=== PATIENT | female | born 1965 | race American Indian/Alaskan Native ===

== ENCOUNTER 2018-07-21 12:56 | Inpatient (IN) | payer MEDICARE ==
[2018-07-21] MEDS ORDERED: NACL 0.9% 500 ML 500 ML IV ONE (13:55)
--- NOTE | 2018-07-21 14:07 | Emergency Department Report ---
ED General Adult HPI - General Chief complaint: Pain General Stated complaint: PAIN ALL OVER Source: patient, EMS Mode of arrival: Stretcher Limitations: Physical Limitation - History of Present Illness Initial comments: This is a 53-year-old female who apparently does have a great deal of denial. She presents to the emergency department stating "I can't get rid of the flu". On further questioning she states that she has had a stuffy head, congestion and cough but no apparent fever which has been persistent for the last 3 weeks. She denies any chronic medical problems. She denies taking any medications. In actuality she is quadriparetic. She has no indwelling Ring catheter. She admits that she was admitted to [facility] for pneumonia in June. She was transfused at that time. She complains of diffuse myalgias. -: Gradual, week(s) Severity scale (0 -10): 7 Quality: aching Consistency: intermittent Improves with: none Worsens with: none Associated Symptoms: cough Treatments Prior to Arrival: none - Related Data Allergies Allergy/AdvReac Type Severity Reaction Status Date / Time mupirocin [From Bactroban] Allergy Unknown Verified 07/21/18 13:22 Penicillins Allergy Unknown Verified 07/21/18 13:22 tetracycline Allergy Unknown Verified 07/21/18 13:22 ED Review of Systems ROS: Stated complaint: PAIN ALL OVER Other details as noted in HPI Constitutional: weakness. denies: chills, fever Eyes: denies: eye pain, eye discharge, vision change ENT: denies: ear pain, throat pain Respiratory: cough. denies: shortness of breath, wheezing Cardiovascular: denies: chest pain, palpitations Endocrine: no symptoms reported Gastrointestinal: denies: abdominal pain, nausea, diarrhea Genitourinary: other (indwelling Ring). denies: urgency, dysuria, discharge Musculoskeletal: denies: back pain, joint swelling, arthralgia Skin: denies: rash, lesions Neurological: other (bedridden quadriparesis). denies: headache, weakness, paresthesias Psychiatric: denies: anxiety, depression Hematological/Lymphatic: denies: easy bleeding, easy bruising ED Past Medical Hx - Past Medical History Previous Medical History?: Yes Additional medical history: quadriplegia - Social History Smoking Status: Never Smoker Substance Use Type: None ED Physical Exam - General Limitations: Physical Limitation General appearance: cachectic - Head Head exam: Present: atraumatic - Eye Eye exam: Present: PERRL, EOMI. Absent: scleral icterus - Neck Neck exam: Absent: tenderness, meningismus - Respiratory Respiratory exam: Present: normal lung sounds bilaterally. Absent: respiratory distress - Cardiovascular Cardiovascular Exam: Present: regular rate. Absent: normal rhythm, bradycardia, tachycardia - GI/Abdominal GI/Abdominal exam: Present: soft, distended. Absent: tenderness, guarding, rebound, rigid - Extremities Exam Extremities exam: Present: other (bilateral atrophy of both arms) - Back Exam Back exam: Present: other (decubiti as photographed by nursing staff) - Neurological Exam Neurological exam: Present: CN II-XII intact (as discussed), motor sensory deficit (quadriparesis) - Psychiatric Psychiatric exam: Present: flat affect - Skin Skin exam: Present: warm, dry, intact ED Course Vital Signs 07/21/18 13:16 Temperature 99.7 F H Pulse Rate 84 Respiratory 16 Rate Blood Pressure 130/72 [Left] O2 Sat by Pulse 93 Oximetry - Reevaluation(s) Reevaluation #1: Patient was found to be hyponatremic and hypomagnesemic. I couldn't exclude infected decubiti. I'm going to start the patient on vancomycin. Further antibiotic coverage if appropriate per hospitalist. 07/21/18 15:04 ED Medical Decision Making - Lab Data Result diagrams: 07/21/18 14:03 07/21/18 14:03 Laboratory Results - last 24 hr 07/21/18 07/21/18 07/21/18 14:03 14:03 14:03 WBC 8.9 RBC 3.04 L Hgb 8.7 L Hct 26.6 L MCV 88 MCH 29 MCHC 33 RDW 16.9 H Plt Count 537 H PT 14.2 INR 1.04 APTT 29.5 VBG pH Sodium Potassium Chloride Carbon Dioxide Anion Gap BUN Creatinine Estimated GFR BUN/Creatinine Ratio Glucose Lactic Acid 0.90 Calcium Phosphorus Magnesium Total Bilirubin Direct Bilirubin Indirect Bilirubin AST ALT Alkaline Phosphatase Total Creatine Kinase CK-MB (CK-2) CK-MB (CK-2) Rel Index Total Protein Albumin Albumin/Globulin Ratio 07/21/18 07/21/18 14:03 14:03 WBC RBC Hgb Hct MCV MCH MCHC RDW Plt Count PT INR APTT VBG pH 7.373 Sodium 126 L Potassium 4.0 Chloride 89.8 L Carbon Dioxide 21 L Anion Gap 19 BUN 13 Creatinine 0.3 L Estimated GFR > 60 BUN/Creatinine Ratio 43 Glucose 87 Lactic Acid Calcium 9.2 Phosphorus 3.00 Magnesium 1.60 L Total Bilirubin 0.30 Direct Bilirubin < 0.2 Indirect Bilirubin 0.1 AST 17 ALT 15 Alkaline Phosphatase 122 Total Creatine Kinase 43 CK-MB (CK-2) < 1.0 CK-MB (CK-2) Rel Index 2.3 Total Protein 9.0 H Albumin 2.8 L Albumin/Globulin Ratio 0.5 - EKG Data -: EKG Interpreted by Dc EKG shows normal: sinus rhythm Rate: normal - EKG Data Interpretation: no acute changes 07/21/18 15:03 j point elevation, rsr v1 and v2 - Radiology Data Radiology results: report reviewed (chest x-ray shows no acute process) Critical care attestation.: If time is entered above; I have spent that time in minutes in the direct care of this critically ill patient, excluding procedure time. ED Disposition Clinical Impression: Hyponatremia, Hypomagnesemia, Quadriparesis Anemia Qualifiers: Anemia type: unspecified type Qualified Code(s): D64.9 - Anemia, unspecified Sacral decubitus ulcer Qualifiers: Pressure injury stage: unspecified pressure injury stage Qualified Code(s): L89.159 - Pressure ulcer of sacral region, unspecified stage Disposition: OP ADMIT IP TO THIS HOSP Is pt being admited?: Yes Does the pt Need Aspirin: Yes Condition: Stable Time of Disposition: 15:06
[2018-07-21 14:26] LABS: Hematocrit 26.6 % (30.3-42.9); Hemoglobin 8.7 gm/dl (10.1-14.3); Mean Corpuscular HGB Conc 33 % (30-34); Mean Corpuscular Volume 88 fl (79-97); Platelet Count 537 K/mm3 (140-440); Red Blood Count 3.04 M/mm3 (3.65-5.03); Red Cell Distribution Width 16.9 % (13.2-15.2)
[2018-07-21 14:38] LABS: INR 1.04 (0.87-1.13)
[2018-07-21 14:39] LABS: Partial Thromboplastin Time 29.5 Sec. (24.2-36.6)
[2018-07-21 14:46] LABS: Alanine Aminotransferase 15 units/L (7-56); Albumin 2.8 g/dL (3.9-5); BUN/Creatinine Ratio 43; Blood Urea Nitrogen 13 mg/dL (7-17); Calcium 9.2 mg/dL (8.4-10.2); Hemolysis Index 14
[2018-07-21 14:48] LABS: Bilirubin,Direct < 0.2 mg/dL (0-0.2); Creatine Kinase MB < 1.0 ng/mL (0.0-4.0)
[2018-07-21] MEDS ORDERED: MAGNESIUM SULFATE 2GM/50ML 2 GM/50 ML BAG IV ONE (15:01)
[2018-07-21] MEDS ORDERED: VANCOMYCIN/NS 1 GM/250 ML 1 GM/250 ML BAG IV ONE (15:02)
[2018-07-21] MEDS ORDERED: BABY ASPIRIN PO ONE (15:07)
[2018-07-21] MEDS ORDERED: NACL 0.9% 1000 ML 1,000 ML IV ONE (15:08)
[2018-07-21 15:28] LABS: Bacteria,Urine 4+ /HPF (Negative); Bilirubin,Urine NEG (Negative); Blood,Urine MOD (Negative); Color,Urine Yellow (Yellow); Mucus,Urine FEW /HPF; Urobilinogen,Urine < 2.0 mg/dL (<2.0)
[2018-07-21 15:29] LABS: WBC,Urine > 182.0 /HPF (0.0-6.0)
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
[2018-07-21] MEDS ORDERED: VANCOMYCIN 1,250 MG in NACL 0.9% 250ML 250 ML IV ONE (16:00)
--- NOTE | 2018-07-21 16:19 | XRay Report ---
EXAM: XR CHEST 1V AP HISTORY: possible Sepsis TECHNIQUE: AP CXR dated 07/21/2018 at 2:09 PM. COMPARISON: None available. FINDINGS: The heart size and mediastinum are within normal limits. The lung sanches and costophrenic angles are clear. There is no acute parenchymal infiltrate, pleural effusion, or pneumothorax seen. There is t horacic dextroscoliosis. The visualized bony structures are otherwise within normal limits. IMPRESSION: 1. No evidence for acute cardiopulmonary disease seen. This document is electronically signed by Anabelle Marks MD., July 21 2018 04:17:25 PM ET
[2018-07-21] MEDS ORDERED: PROVENTIL IH PRN (16:24)
[2018-07-21] MEDS ORDERED: ZOFRAN IV PRN (16:24)
[2018-07-21] MEDS ORDERED: SODIUM CHLORIDE FLUSH SYRINGE 10 ML IV PRN (16:24)
[2018-07-21] MEDS: NACL 0.9% 1000 ML 1,000 ML IV SCH (16:43)
[2018-07-21 16:46] LABS: Basophils % (Manual) 0 % (0.0-1.8); Eosinophils % (Manual) 0 % (0.0-4.3); Myelocytes # (Manual) 0.2 K/mm3; Total Cells Counted 100
[2018-07-21 16:47] LABS: Anisocytosis 1+; Platelet Estimate Consistent w Auto
[2018-07-21] MEDS ORDERED: LEVAQUIN 500MG/100ML 500 MG/100 ML BAG IV SCH (17:00)
[2018-07-21] MEDS ORDERED: FLEET MINERAL OIL PR ONE ×2 (17:00→17:34)
[2018-07-21] MEDS ORDERED: LEVAQUIN 500MG/100ML 500 MG/100 ML BAG IV ONE (17:34)
--- NOTE | 2018-07-21 20:28 | Cat Scan Report ---
PROCEDURE: CT SINUSES WO CON TECHNIQUE: CT of the sinuses obtained without contrast. HISTORY: nasal congestion COMPARISONS: None FINDINGS: Partial opacification of the left frontal sinus and bilateral maxillary sinuses noted with mucosal th ickening. Opacification of the bilateral ostiomeatal units noted. Correlate for sinus inflammatory di sease. No gross air-fluid levels visualized. Mastoid air cells well aerated. Osseous structures intact. IMPRESSION: Partial opacification of the left frontal sinus and bilateral maxillary sinuses noted with mucosal th ickening. Opacification of the bilateral ostiomeatal units noted. Correlate for sinus inflammatory di sease. This document is electronically signed by Gonzales Dumont MD., July 21 2018 08:26:36 PM ET
[2018-07-21] MEDS: SODIUM CHLORIDE FLUSH SYRINGE 10 ML IV SCH (22:22)
[2018-07-21] MEDS ORDERED: LOVENOX SUB-Q ONE (22:26)
[2018-07-21] MEDS: LOVENOX SUB-Q SCH (22:29)
[2018-07-21] MEDS ORDERED: NACL 0.9% 1000 ML 1,000 ML ONE (23:18)
[2018-07-22] MEDS: TYLENOL PO PRN ×2 (01:53→23:18)
[2018-07-22 07:49] LABS: Hematocrit 26.2 % (30.3-42.9); Hemoglobin 8.4 gm/dl (10.1-14.3); Mean Corpuscular HGB Conc 32 % (30-34); Mean Corpuscular Volume 87 fl (79-97); Platelet Count 515 K/mm3 (140-440); Red Blood Count 3.02 M/mm3 (3.65-5.03); Red Cell Distribution Width 16.9 % (13.2-15.2)
[2018-07-22 07:56] LABS: BUN/Creatinine Ratio 40; Blood Urea Nitrogen 8 mg/dL (7-17); Calcium 8.5 mg/dL (8.4-10.2); Hemolysis Index 11
[2018-07-22 09:30] LABS: Band Neutrophils # (Manual) 0.4 K/mm3; Basophils % (Manual) 0 % (0.0-1.8); Total Cells Counted 100
[2018-07-22 09:31] LABS: Anisocytosis 1+; Hypochromasia 1+; Ovalocytes 1+; Platelet Estimate Consistent w Auto
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
[2018-07-22] MEDS: NACL 0.9% 1000 ML 1,000 ML IV SCH (18:07)
[2018-07-22] MEDS: SODIUM CHLORIDE FLUSH SYRINGE 10 ML IV SCH ×2 (18:07→22:11)
[2018-07-22] MEDS: THERAGRAN Tab PO SCH (18:08)
[2018-07-22] MEDS: VITAMIN C PO SCH (18:09)
[2018-07-22] MEDS: DELTASONE PO SCH (18:09)
[2018-07-22] MEDS: ROCEPHIN/NS 2 GM/100 ML 2 GM/100 ML BAG IV SCH (19:03)
[2018-07-22] MEDS: LOVENOX SUB-Q SCH (22:09)
[2018-07-22] MEDS: COLACE PO SCH (22:10)
[2018-07-22] MEDS: LIORESAL PO SCH (22:10)
[2018-07-23] MEDS: LIORESAL PO SCH ×3 (08:09→20:46)
[2018-07-23] MEDS: PROAMATINE PO SCH ×3 (08:10→16:33)
[2018-07-23] MEDS: VITAMIN C PO SCH (09:46)
[2018-07-23] MEDS: COLACE PO SCH ×2 (09:46→21:38)
[2018-07-23] MEDS: DELTASONE PO SCH (09:46)
[2018-07-23] MEDS: THERAGRAN Tab PO SCH (09:47)
[2018-07-23] MEDS: SODIUM CHLORIDE FLUSH SYRINGE 10 ML IV SCH ×2 (09:47→21:37)
[2018-07-23] MEDS: DULCOLAX PR PRN (10:32)
[2018-07-23] MEDS: NACL 0.9% 1000 ML 1,000 ML IV SCH (16:27)
[2018-07-23] MEDS: ROCEPHIN/NS 2 GM/100 ML 2 GM/100 ML BAG IV SCH (16:27)
[2018-07-23] MEDS ORDERED: ATIVAN PO PRN (16:35)
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
[2018-07-23] MEDS: LOVENOX SUB-Q SCH (21:37)
[2018-07-23] MEDS: PEPCID PO SCH (21:38)
[2018-07-24] MEDS: PROAMATINE PO SCH ×3 (08:00→16:00)
[2018-07-24] MEDS: LIORESAL PO SCH ×3 (08:00→20:11)
[2018-07-24] MEDS: THERAGRAN Tab PO SCH (09:10)
[2018-07-24] MEDS: SODIUM CHLORIDE FLUSH SYRINGE 10 ML IV SCH ×2 (09:10→21:45)
[2018-07-24] MEDS: PEPCID PO SCH ×2 (09:10→21:44)
[2018-07-24] MEDS: COLACE PO SCH ×2 (09:10→21:44)
[2018-07-24] MEDS: VITAMIN C PO SCH ×2 (09:10→10:34)
[2018-07-24] MEDS: DELTASONE PO SCH (09:10)
[2018-07-24 09:12] LABS: Hematocrit 27.1 % (30.3-42.9); Hemoglobin 8.8 gm/dl (10.1-14.3); Mean Corpuscular HGB Conc 33 % (30-34); Mean Corpuscular Volume 86 fl (79-97); Platelet Count 566 K/mm3 (140-440); Red Blood Count 3.14 M/mm3 (3.65-5.03); Red Cell Distribution Width 16.7 % (13.2-15.2)
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
[2018-07-24 09:32] LABS: BUN/Creatinine Ratio 20; Blood Urea Nitrogen 4 mg/dL (7-17); Calcium 8.7 mg/dL (8.4-10.2); Hemolysis Index 5
[2018-07-24] MEDS: PERCOCET 5/325 PO PRN ×2 (09:32→13:32)
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
--- NOTE | 2018-07-24 16:49 | Event Note ---
Date: 07/24/18 Got called by RN, patient again refusing catheter exchange. Recommend catheter exchange at her urologist clinic.
[2018-07-24] MEDS ORDERED: MONUROL PO ONE (18:00)
[2018-07-24] MEDS: ROCEPHIN/NS 2 GM/100 ML 2 GM/100 ML BAG IV SCH (18:02)
[2018-07-24] MEDS ORDERED: K-DUR PO ONE (18:31)
[2018-07-24] MEDS: LOVENOX SUB-Q SCH (21:44)
[2018-07-24 22:57] LABS: Albumin 2.6 g/dL (3.8-4.8); Gamma Globulin 2.4 g/dL (0.8-1.7)
[2018-07-25] MEDS: PERCOCET 5/325 PO PRN ×2 (02:59→19:36)
[2018-07-25 08:44] LABS: BUN/Creatinine Ratio 20; Blood Urea Nitrogen 4 mg/dL (7-17); Calcium 8.6 mg/dL (8.4-10.2); Hemolysis Index 10
[2018-07-25] MEDS: THERAGRAN Tab PO SCH (10:24)
[2018-07-25] MEDS: PROAMATINE PO SCH ×3 (10:24→20:24)
[2018-07-25] MEDS: VITAMIN C PO SCH (10:24)
[2018-07-25] MEDS: PEPCID PO SCH ×2 (10:24→22:13)
[2018-07-25] MEDS: COLACE PO SCH ×2 (10:24→22:13)
[2018-07-25] MEDS: DELTASONE PO SCH (10:24)
[2018-07-25] MEDS: DULCOLAX PR PRN (10:32)
[2018-07-25] MEDS: LIORESAL PO SCH ×3 (10:32→20:23)
[2018-07-25] MEDS ORDERED: MIRALAX 3350 PO PRN (15:50)
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
[2018-07-25] MEDS: SODIUM CHLORIDE FLUSH SYRINGE 10 ML IV SCH ×2 (20:22→22:20)
[2018-07-25] MEDS: LOVENOX SUB-Q SCH (22:14)
[2018-07-26] MEDS: PERCOCET 5/325 PO PRN ×2 (03:05→18:51)
[2018-07-26] MEDS: SENOKOT S PO PRN ×2 (03:19→22:24)
[2018-07-26] MEDS: LIORESAL PO SCH ×3 (08:16→20:30)
[2018-07-26] MEDS: PROAMATINE PO SCH ×3 (08:16→16:20)
[2018-07-26] MEDS: PEPCID PO SCH ×2 (09:21→22:25)
[2018-07-26] MEDS: VITAMIN C PO SCH (09:21)
[2018-07-26] MEDS: THERAGRAN Tab PO SCH (09:21)
[2018-07-26] MEDS: SODIUM CHLORIDE FLUSH SYRINGE 10 ML IV SCH ×2 (09:21→22:25)
[2018-07-26] MEDS: COLACE PO SCH ×2 (09:21→22:25)
--- NOTE | 2018-07-26 12:29 | Discharge Summary ---
Providers - Providers Date of Admission: 07/21/18 16:24 Date of discharge: 07/26/18 Attending physician: MIGUEL ANGEL CATES 07/21/18 16:14 Consult to Wound/ET Nurse [CONS] Routine Reason For Exam: wound eval 07/21/18 16:15 Consult to Case Management [CONS] Routine Services Needed at Discharge: Delicatessen Manager Notified:: pavel Additional Physician Instructions: Discharge planning, Pt is not satisfied with current SNF Placement. 07/24/18 14:02 Consult to Physician [CONS] Routine Comment: Consulting Provider: FLORENCIO NORIEGA Physician Instructions: Reason For Exam: ESBL UTI Hospitalization Condition: Fair Hospital course: Patient is 53 yo female SNF resident with debility, sacral decubitus ulcer with chronic indwelling matias catheter, quadraplegia presents to ED for evaluation. Pt states that she has experienced stuffy head, nasal congestion,cough, generalized weakness. Patient was seen and evaluated in ED and found to have Catheter Associated UTI, Hyponatremia, as well as chronic sacral decubitus ulcers. Patient was started on iv Antibiotics and admitted. Wound care don was done by Wound Nurse. Urine cultures grew Klebsiella pmeumonia ESBL and other Gram neg riri. ID was consulted and she was prescribed Fosfomycin. Patient symptoms subsided and was discharged to SNF on 07/26/18. Urine protein electrophoresis neg. Total time spent on discharge, 35 mins Disposition: [id number]/[place]-03 SNF W [facility] C[facility] - Discharge Diagnoses (1) Failure to thrive Status: Acute (2) Failure to thrive in adult Status: Acute (3) Debility Status: Acute (4) Quadriplegia and quadriparesis Status: Acute (5) Decubitus ulcer of sacral area Status: Acute (6) Catheter-associated urinary tract infection Status: Acute (7) UTI (urinary tract infection) Status: Acute Qualifiers: Encounter type: initial encounter Core Measure Documentation - Palliative Care Palliative Care/ Comfort Measures: Not Applicable - Core Measures Any of the following diagnoses?: none Exam - Constitutional Vitals: Temp Pulse Resp BP Pulse Ox 98.1 F 92 H 18 104/39 100 07/26/18 12:11 07/26/18 12:11 07/26/18 12:11 07/26/18 12:11 07/26/18 12:11 Plan Activity: advance as tolerated Diet: low fat, low cholesterol Additional Instructions: 1.Follow up with Physician at [facility] in 2-3 days. 2.Follow up with Dr. Do, Orthopedic surgeon in 1 week. 3.Follow up with Urologist in 1 week Prescriptions: Ativan 0.5 mg PO BID PRN #10 PRN Reason: Anxiety Hydrocodone-Acetamin 5-325 mg 1 tab PO Q4H PRN #10 PRN Reason: Pain, Moderate (4-6)
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
[2018-07-26] MEDS: LOVENOX SUB-Q SCH (22:22)
[2018-07-26] MEDS: DULCOLAX PR SCH (22:26)
[2018-07-27 06:28] LABS: Abnormal Protein Band 1 SEE SCANNED RESULT; Abnormal Protein Band 2 SEE SCANNED RESULT; Albumin SEE SCANNED RESULT; Creatinine, Random Urine SEE SCANNED RESULT; Gamma Globulin SEE SCANNED RESULT; Interpretation SEE SCANNED RESULT; Protein/Creatinine Ratio SEE SCANNED RESULT
[2018-07-27] MEDS: LIORESAL PO SCH ×2 (08:39→13:13)
[2018-07-27] MEDS: PROAMATINE PO SCH ×2 (08:40→13:13)
[2018-07-27] MEDS: COLACE PO SCH (09:38)
[2018-07-27] MEDS: SODIUM CHLORIDE FLUSH SYRINGE 10 ML IV SCH (09:38)
[2018-07-27] MEDS: PEPCID PO SCH (09:38)
[2018-07-27] MEDS: THERAGRAN Tab PO SCH (09:38)
[2018-07-27] MEDS: VITAMIN C PO SCH (09:38)
[2018-07-27] MEDS: DULCOLAX PR SCH (09:39)
[2018-07-27 11:22] VITALS: BP 117/66
--- NOTE | 2018-07-27 13:08 | Event Note ---
Date: 07/27/18 Patient stable to discharge today. I have seen and examined her today.
== END 2018-07-27 15:30 | DRG 698 ==
LOC: ED 12:56 → 3A 16:24
PROVIDERS: ADMIT Internal Medicine; ATTEND Internal Medicine
DX: T83.511A Infection and inflammatory reaction due to indwelling urethral catheter, initial encounter (principal); G82.50 Quadriplegia, unspecified; E87.1 Hypo-osmolality and hyponatremia; C90.00 Multiple myeloma not having achieved remission; N39.0 Urinary tract infection, site not specified; L89.159 Pressure ulcer of sacral region, unspecified stage; E83.42 Hypomagnesemia; D63.8 Anemia in other chronic diseases classified elsewhere; B96.1 Klebsiella pneumoniae [K. pneumoniae] as the cause of diseases classified elsewhere; J32.9 Chronic sinusitis, unspecified; K59.00 Constipation, unspecified; Y83.8 Other surgical procedures as the cause of abnormal reaction of the patient, or of later complication, without mention of misadventure at the time of the procedure; Y92.89 Other specified places as the place of occurrence of the external cause; Z16.12 Extended spectrum beta lactamase (ESBL) resistance; Z88.0 Allergy status to penicillin; Z88.1 Allergy status to other antibiotic agents
CPT/HCPCS: 36415; 70486; 71045; 80048; 80076; 81001; 82140; 82232; 82550; 82553; 82805; 83615; 83735; 84100; 84165; 84166; 85007; 85025; 85027; 85610; 85730; 86334; 86850; 86900; 86901; 87040; 87076; 87086; 87186; 93005; 93010; 96365; 96367; 96372; 96375; G0378; J0696; J1650; J1956; J3370; J3475; J7030; J7040; J7050; J7512